=== PATIENT | female | born 1985 | race Two or more races ===

== ENCOUNTER 2021-12-19 09:44 | Emergency (ER) | payer SELFPAY ==
[2021-12-19] MEDS ORDERED: Ibuprofen 200 MG TAB ONE (11:53)
[2021-12-19] MEDS ORDERED: Acetaminophen 500 MG TAB ONE (11:53)
== END 2021-12-19 12:00 | disposition home or self-care (01) ==
LOC: ERS 09:44
DX: J06.9 Acute upper respiratory infection, unspecified (principal); F17.210 Nicotine dependence, cigarettes, uncomplicated; Z20.822 Contact with and (suspected) exposure to COVID-19
CPT/HCPCS: 87804; 99283; U0003; U0005